=== PATIENT | male | born 1995 | race Asian ===

== ENCOUNTER 2021-12-22 18:26 | Emergency (ER) | payer OTHER, SELFPAY ==
[2021-12-22 18:34] VITALS: BP 166/95; PULSE 99; RESP 20; TEMP 36.9; O2SAT 100
[2021-12-22 20:30] VITALS: BP 142/89; PULSE 69; RESP 18; O2SAT 100
--- NOTE | 2021-12-22 20:34 | ED.SKABFB ---
HPI - Skin/Abscess/Foreign Bdy General Chief complaint: Skin/Abscess/Foreign Body Stated complaint: rash on L arm Time Seen by Provider: 12/22/21 19:58 History of Present Illness HPI narrative: Patient is a 26-year-old male here for evaluation of a pruritic rash over the past 3 days. Patient states the rash began in his bilateral axillae and has since spread distally. Additionally notes lesions inbetween his fingers. No lesions to groin. He was seen at an urgent care facility, with his told to take Benadryl as needed and also also given a prescription for oral prednisone. Patient has not taken the prednisone yet. Denies any new soaps, medications, detergents. Nobody at home has a rash. He does work at the [employer] and has frequent contact with children. Related Data Allergies Allergy/AdvReac Type Severity Reaction Status Date / Time No Known Allergies Allergy Mild Verified 12/22/21 20:02 Review of Systems Review of Systems: Gen: Denies fevers or chills Eyes: Denies eye pain or visual change ENT: Denies congestion Respiratory: Denies shortness of breath or cough CV: Denies chest pain or palpitations GI: Denies abdominal pain nausea, emesis or diarrhea denies burning, urgency, frequency or hematuria Musculoskeletal: Denies back pain or muscle pain Neuro: Denies numbness, tingling, weakness or focal weakness Skin: Reports rash. Except as documented, all other systems reviewed and negative Exam Narrative: Gen: Alert, oriented, no acute distress Eyes: EOMI, no icterus Pulm: Respirations even and unlabored, symmetric thorax expansion, no audible stridor or visible cyanosis CV: Regular rate per telemetry GI: No distension, no voluntary/involuntary guarding Neuro: AOx4, moves all extremities without apparent difficulty or weakness, follows commands Skin: Patient has numerous, grouped, pinpoint papules in a linear distribution to bilateral upper extremities, most notable to bilateral axillae and in between the digits of his upper extremity. He has several lesions in between his toes extending up his feet. Nikolsky sign negative. Psych: Normal mood/affect, insight/judgement good, adequate fund of knowledge, recent/remote memory intact Course Vital Signs Vital signs: Vital Signs Temperature 98.4 F 12/22/21 18:34 Pulse Rate 99 12/22/21 18:34 Respiratory Rate 20 12/22/21 18:34 Blood Pressure 166/95 H 12/22/21 18:34 Pulse Oximetry 100 12/22/21 18:34 Oxygen Delivery Room Air 12/22/21 18:34 Temperature 98.4 F 12/22/21 18:34 Pulse Rate 69 12/22/21 20:30 Respiratory Rate 18 12/22/21 20:30 Blood Pressure 142/89 H 12/22/21 20:30 Pulse Oximetry 100 12/22/21 20:30 Oxygen Delivery Room Air 12/22/21 18:34 MDM - Skin/Abscess/Foreign Bdy MDM Narrative Medical decision making narrative: 26-year-old male here for evaluation of a pruritic, pinpoint papules diffusely over his body, most notably in the distal extremities and in his bilateral axillae. History and physical exam concerning for scabies. Will prescribe ivermectin for patient to taken 2 doses, advised him to inform members of his household and avoid close contact with others. Rash is not painful, he has no systemic symptoms to suggest SJS or TENS. He was given reasons to return to the ED and he voiced understanding. Discharge Plan Discharge Clinical Impression: Scabies Patient Disposition: Home, Self-Care Condition: Stable Instructions: Antibiotic Form, Scabies (ED) Additional Instructions: Your rash today may be due to scabies, which is caused by small parasites. Please take the ivermectin and 2 doses, take your first dose after picking up at the pharmacy, and take the second dose in about 9 days. You may also use the prednisone that was prescribed to you at the urgent care facility. Return to the emergency department if your rash becomes painful, if you develop fevers, chills, nausea, vomiting, or other concerning symptoms.
== END 2021-12-22 21:19 | disposition home or self-care (01) ==
PROVIDERS: Emergency Provider Emergency Medicine
DX: B86 Scabies (principal)
CPT/HCPCS: 99283

== ENCOUNTER 2021-12-25 14:47 | Emergency (ER) | payer OTHER, SELFPAY ==
--- NOTE | 2021-12-25 14:59 | PC.NURSE ---
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 Patient alert and ambulatory upon leaving the ED.
== END 2021-12-25 15:00 | disposition left against medical advice (07) ==
LOC: ANHED 15:04
DX: Z53.21 Procedure and treatment not carried out due to patient leaving prior to being seen by health care provider (principal)
CPT/HCPCS: 99199